=== PATIENT | female | born 1940 | race Caucasian/White ===

== ENCOUNTER 2019-10-11 19:55 | Emergency (ER) | payer MEDICARE, SELFPAY ==
[2019-10-11 19:57] VITALS: BP 159/120; PULSE 95; RESP 18; TEMP 36.4; O2SAT 92; BMI 28.3
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
[2019-10-11] MEDS: HYDROcodone Bitartrate/Apap 5/325 Tablet PO (21:19)
[2019-10-11] MEDS: predniSONE 20 MG Tablet 40 MG PO (21:19)
[2019-10-11 21:23] VITALS: PULSE 83; RESP 16; O2SAT 97
== END 2019-10-11 21:51 | disposition home or self-care (01) ==
PROVIDERS: Emergency Provider Emergency Medicine; PCP Family Medicine
DX: J45.901 Unspecified asthma with (acute) exacerbation (principal); M54.5 Low back pain; G89.29 Other chronic pain; I10 Essential (primary) hypertension
CPT/HCPCS: 99283

== ENCOUNTER → 2019-10-27 | Outpatient (CLI) | payer MEDICARE, SELFPAY ==
[2019-10-11 19:57] VITALS: BMI 28.3
--- NOTE | 2019-10-27 16:04 | RAD_ITS ---
STUDY: X-RAY - THORACIC SPINE REASON FOR EXAM: Female, 79 years old. Back pain TECHNIQUE: 2 view(s) of the thoracic spine were obtained. COMPARISON: None. FINDINGS: Normal kyphosis of the thoracic spine. There is a 9-10 degrees levoscoliosis centered at T7-8. There is multilevel endplate spondylosis of the thoracic vertebrae, with hypertrophic, near bridging right anterolateral endplate osteophytes most prominent at T7-8. Normal disc space heights. Slight left lateral wedging of the T6 vertebra. There is no demonstrated osseous destructive lesion or acute compression fracture deformity The paraspinal soft tissue structures are unremarkable. Atherosclerotic calcifications of the thoracic aorta are incidentally noted. RAD/Thoracic Spine 2 Views IMPRESSION: Degenerative changes of the thoracic spine, as described, most prominent at T7-8. Electronically Signed: Brijesh Renee MD at 16:33 EDT , Service support ,
--- NOTE | 2019-10-27 16:05 | RAD_ITS ---
STUDY: X-RAY - LUMBAR SPINE REASON FOR EXAM: Female, 79 years old. Back pain TECHNIQUE: 3 view(s) of the lumbar spine were obtained. COMPARISON: None FINDINGS: Normal lumbar lordosis. There is no substantial scoliosis. There is mild retrolisthesis of L4 on L5 There is degenerative anterior endplate spondylosis of the L4-5 and L5-S1 vertebrae. Very early anterior spurring noted at the inferior L1 endplate and at L2-3. There is multi-level degenerative disc disease with moderately severe disc space narrowing L4-5 and L5-S1. Gas lucencies within the disc spaces at those levels indicate vacuum phenomenon typical of disc dehydration. There is no demonstrated osseous destructive lesion or acute fracture. There are degenerative arthroses of the mid to lower lumbar facet joints There is atherosclerotic calcification of the abdominal aorta and proximal iliac arteries without a demonstrated aneurysm. RAD/Lumbar Spine 2 or 3 Views IMPRESSION: Degenerative changes of the spine, as detailed above, most prominent at L4-5 and L5-S1. Electronically Signed: Brijesh Renee MD at 16:30 EDT , Service support ,
== END | disposition home or self-care (01) ==
LOC: RAD 16:01
PROVIDERS: PCP Family Medicine; Referring Provider Anesthesiology Pain Medicine; Visit Provider Anesthesiology Pain Medicine
DX: M54.5 Low back pain (principal); M54.6 Pain in thoracic spine
CPT/HCPCS: 72070; 72100

== ENCOUNTER → 2019-11-20 11:59 | Outpatient (CLI) | payer MEDICARE, SELFPAY ==
[2019-11-20 15:52] LABS: ALB/GLOB Ratio 1.1 RATIO (0.9-2.4); AST(SGOT) 13 U/L (15-37); Alanine Aminotransfer ALT/SGPT 22 U/L (13-56); Albumin, Serum 4.2 g/dL (3.2-5.0); Alkaline Phosphatase 102 U/L (45-117); Anion Gap 11 (5-15); BUN 22 mg/dL (7-18); BUN/Creat Ratio 28.1 RATIO (10-20); Calcium,Total 9.9 mg/dL (8.5-10.1); Chloride 102 mmol/L (98-107); Cholesterol 337 mg/dL (200); Creatinine, Serum 0.78 mg/dL (0.55-1.02); EST Glomerular Filtration Rate 75 mL/min (>60); Est Glom Filt Rate - Afr Amer 91 mL/min (>60); Globulin 3.9 g/dL (2.2-4.2); Glucose 113 mg/dL (74-106); High Density Lipoprotein 46 mg/dL; Potassium 4.4 mmol/L (3.5-5.1); Protein, Total 8.1 g/dL (6.4-8.2); Sodium Level 138 mmol/L (136-145); Thyroid Stim Hormone (TSH) 1.33 uIU/mL (0.358-3.74); Triglycerides 221 mg/dL; Very Low Density Lipoprotein 44 mg/dL (5-40)
== END ==
PROVIDERS: Family Medicine; PCP Family Medicine; Referring Provider Family Medicine; Visit Provider Family Medicine
DX: E03.9 Hypothyroidism, unspecified (principal); Z13.220 Encounter for screening for lipoid disorders
CPT/HCPCS: 36415; 80053; 80061; 84443

== ENCOUNTER 2019-12-23 13:00 | Outpatient (RCR) | payer MEDICARE, OTHER, SELFPAY ==
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
--- NOTE | 2020-02-26 08:52 | HP.PTDCSUM ---
It has been my pleasure to treat HUMBERTO ALVARADO referred by Dr. Rosalie Suarez MD, with the diagnosis of Lumbar Spine Pain for a total of 9 visit(s). Discharge Date: Please see the following information for a summary of their discharge status. Subjective: Patient reports that she is doing well- plans to join [facility] Pain Intensity (Out of 10): 6 Objective/Function: Patient was able to complete without incidence. Progressed to weight machines today as pt plans to join [employer] and wanted a program Goal 1:: Patient will be I with HEP and progression Goal 2:: Patient will ambulate >300 feet with a normalized gait pattern Goal 3:: Patient will maintain proper posture t/o to demo increased core s/s Plan: Focus on LE and core s/s with functional mobility If there are questions or concerns regarding this patient's physical therapy, please feel free to call me at [phone]. Thank you for the referral of this patient. Sincerely, AWA PizarroT
== END 2019-12-23 19:00 | disposition home or self-care (01) ==
LOC: PT 13:00
PROVIDERS: PCP Family Medicine; Referring Provider Family Medicine; Visit Provider Anesthesiology Pain Medicine
DX: M54.5 Low back pain (principal); G89.29 Other chronic pain; M25.522 Pain in left elbow; M79.606 Pain in leg, unspecified
CPT/HCPCS: 97110; 97162

== ENCOUNTER 2019-12-31 19:37 | Emergency (ER) | payer MEDICARE, OTHER, SELFPAY ==
[2019-12-31 19:39] VITALS: BP 125/74; PULSE 82; RESP 16; TEMP 36.2; O2SAT 94; BMI 29.2
--- NOTE | 2019-12-31 19:57 | RAD_ITS ---
STUDY: X-RAY CHEST REASON FOR EXAM: Female, 79 years old. Posterior lower right rib pain due to a fall x2 days ago. TECHNIQUE: 2 views COMPARISON: None. FINDINGS: Negative for pneumothorax or pleural effusion. 2 focal eventrations of the right diaphragm. The lung dumont are expanded and clear. Calcified granuloma left upper lung zone. Normal size heart. Normal mediastinum and fermín. Normal visualized pulmonary arteries. There is atherosclerotic calcification of the aortic arch with tortuosity. Demineralized osseous structures. Degenerative disc changes of the thoracic spine. Normal visualized ribs, clavicles, and shoulders. There is no demonstrated abnormality of the visualized soft tissue structures of the upper abdomen. RAD/Chest PA and Lateral IMPRESSION: Negative for pneumothorax, pleural effusion, consolidation or significant atelectasis. Eventrations of the right diaphragm. Normal cardiac size. Atherosclerotic changes of the thoracic aorta. Demineralized osseous structures. Degenerative changes of the spine. Negative for thoracic fracture. Electronically Signed: Amber Dee MD at 20:41 EDT , Service support ,
--- NOTE | 2019-12-31 20:00 | ED.VIS.INJ ---
History of Present Illness Chief Complaint: Fall Detail of Chief Complaint: Right posterior rib pain Informant: Patient Onset: Today, Hours Mechanism/Context: Fall Quality of Pain: Dull, Aching Location: Posterior right eighth through 12th rib Current Severity: Mild Maximum Severity: Moderate Worsened by: Movement and breathing Relieved by: Remain still Associated Symptoms: Negative for: Parasthesias, Weakness, Loss of function, Inability to ambulate, Loss of consciousness, Amnesia Narrative: Patient states she lost her balance on a rug. She fell onto the floor. She struck the right side of her chest/back. She presents because of pain with movement and breathing. She does report mild shortness of breath which she attributes to her pulmonary disease. She denies anterior chest pain. She has urinated and states her urine appeared normal in color. She does have history of fractured back and sees Dr. Mcrae for chronic pain management. She denies head trauma. She is not on anticoagulant. She denies neck pain. Denies paresthesia, anesthesia motor is present at time of injury. Tetanus Immunization: 5-10 years Prior similar symptoms: No Recent Illness/Hospitalization: No - Past Medical History (1) History of COPD Status: Chronic (2) History of chronic back pain Status: Chronic Past Medical History - Allergies and Home Meds Allergies/Adverse Reactions: Allergies latex Allergy (Verified 12/31/19 19:41) Rash Sulfa (Sulfonamide Antibiotics) Allergy (Verified 12/31/19 19:41) Itching Primary Care Physician: Delvin Robertson MD [Primary Care Provider] - Prior records reviewed: Yes Surgical History: noncontributory Lives: Alone Smoking Status: Former smoker Alcohol: None Drugs: None Review of Systems General: Denies: Malaise Eyes: Denies: Visual changes - bilaterally ENT: Reports: - - Decreased hearing, ringing or ears or drainage. Denies epistaxis. Denies difficulty opening closing her mouth or dental pain. Cardiovascular: Denies: Chest pain, Palpitations Respiratory: Denies: Dyspnea, Cough, Dyspnea on exertion Gastrointestinal: Denies: Abdominal pain, Nausea, Vomiting, Diarrhea, Melena, Hematochezia Genitourinary: Denies: Dysuria, Hematuria, Frequency Musculoskeletal: Reports: Back pain. Denies: Myalgias, Arthralgias, Neck pain, Swelling, Extremity Pain Skin: Reports: Wounds - This right mid back due to trauma. Denies: Rash Neurological: Denies: Headache, Weakness, Numbness Hematologic: Denies: Easy bruising, Easy bleeding Physical Exam Vital Signs/Narrative: Vital Signs Temp Pulse Resp BP Pulse Ox 12/31/19 19:39 97.2 F L 82 16 125/74 H 94 Inital Vital Signs reviewed: Yes General: Well nourished, Well developed Head: Normocephalic, Atraumatic. Negative for: Trauma, Tenderness Eyes: Perrl, EOMI, - - No subconjunctival hemorrhage noted.. Negative for: Pale conjunctiva, Scleral icterus ENT: TM's clear, No hemotympanum or drainage, No trauma. Negative for: Hemotympanum, Nasal trauma, Nasal septal hematoma Neck: Nontender, Full ROM. Negative for: Spinal Tenderness, Paraspinal Tenderness Cardiovascular: Regular rate, Regular rhythm, No murmurs, Normal S1, Normal S2 Respiratory: No distress, CTA bilaterally, Chest tenderness Abdomen: Soft, Nontender, Nondistended, Normal bowel sounds, No masses Back: CVA Tenderness - Right, Paraspinal Tenderness. Negative for: Nontender, Spinal Tenderness Skin: Normal color, No rash, Trauma. Negative for: Cyanosis, Diaphoresis, Jaundice Neurological: Alert, Oriented x3, Cranial nerves II-XII grossly intact, Normal Strength, Normal Sensation Psychological: Normal affect - Glascow Coma Scale Eye Opening: Spontaneous Motor: Obeys Commands Verbal: Oriented Coma Scale Total: 15 Diagnostic/Tx/Re-eval Chest X-Ray - ED: Read by ED Physician, Read by Radiologist Impressions Chest X-Ray 12/31/19 19:57 IMPRESSION: Negative for pneumothorax, pleural effusion, consolidation or significant atelectasis. Eventrations of the right diaphragm. Normal cardiac size. Atherosclerotic changes of the thoracic aorta. Demineralized osseous structures. Degenerative changes of the spine. Negative for thoracic fracture. Electronically Signed: Amber Dee MD at 20:41 EDT , Service support , 12/31/19 19:57 Chest PA and Lateral [RAD] Stat X-ray interpreted radiologist reviewed by me. Agree there is no acute pathology noted. We will treat for rib contusion. - Medical Decision Making She has point tenderness over the lower right ribs posteriorly x-ray was obtained to assess for hemothorax and pneumothorax. Patient was medicated with [place]. ED Disposition - Plan for ED Patient: Disposition: Home or Assisted Living Diagnosis: Contusion of ribs Instructions: ED CONTUSION Rib Prescriptions: Hydrocodone Bitart/Apap 5-325 [[place] 5MG-325MG] 1 tablet PO Q6H PRN PRN 3 Days #10 tablet PRN Reason: Pain Transmission Status: Received by [id number] Referrals: Delvin Robertson MD [Primary Care Provider] - As Needed
[2019-12-31] MEDS: HYDROcodone Bitartrate/Apap 5/325 Tablet PO (20:24)
[2019-12-31 20:59] VITALS: RESP 18
== END 2019-12-31 21:06 | disposition home or self-care (01) ==
PROVIDERS: Emergency Provider Emergency Medicine; PCP Family Medicine
DX: S20.219A Contusion of unspecified front wall of thorax, initial encounter (principal); J44.9 Chronic obstructive pulmonary disease, unspecified; G89.29 Other chronic pain; M54.9 Dorsalgia, unspecified; Z79.1 Long term (current) use of non-steroidal anti-inflammatories (NSAID); Z87.891 Personal history of nicotine dependence; W18.30XA Fall on same level, unspecified, initial encounter; Y93.89 Activity, other specified; Y92.89 Other specified places as the place of occurrence of the external cause; Y99.8 Other external cause status
CPT/HCPCS: 71046; 99282

== ENCOUNTER → 2020-02-20 | Outpatient (CLI) | payer MEDICARE, OTHER, SELFPAY ==
[2020-02-20 15:37] LABS: AST(SGOT) 24 U/L (15-37); Alanine Aminotransfer ALT/SGPT 27 U/L (13-56); Alkaline Phosphatase 107 U/L (45-117); Anion Gap 7 (5-15); BUN 11 mg/dL (7-18); BUN/Creat Ratio 11.8 RATIO (10-20); Calcium,Total 9.9 mg/dL (8.5-10.1); Chloride 102 mmol/L (98-107); Cholesterol 190 mg/dL (200); Creatinine, Serum 0.93 mg/dL (0.55-1.02); EST Glomerular Filtration Rate 62 mL/min (>60); Est Glom Filt Rate - Afr Amer 75 mL/min (>60); Glucose 108 mg/dL (74-106); High Density Lipoprotein 54 mg/dL; Potassium 4.1 mmol/L (3.5-5.1); Sodium Level 138 mmol/L (136-145); Triglycerides 160 mg/dL; Very Low Density Lipoprotein 32 mg/dL (5-40)
== END | disposition home or self-care (01) ==
LOC: MFPLAB 11:58
PROVIDERS: Family Medicine; PCP Family Medicine; Referring Provider Family Medicine; Visit Provider Family Medicine
DX: E78.5 Hyperlipidemia, unspecified (principal)
CPT/HCPCS: 36415; 80053; 80061

== ENCOUNTER → 2020-04-26 | Outpatient (CLI) | payer MEDICARE, OTHER, SELFPAY ==
[2020-04-29 10:43] LABS: HPV Reflexed? NOT INDICATED
== END | disposition home or self-care (01) ==
PROVIDERS: PCP Family Medicine; Referring Provider Nurse Practitioner Adult Health; Visit Provider Nurse Practitioner Adult Health
DX: Z85.44 Personal history of malignant neoplasm of other female genital organs (principal); Z12.4 Encounter for screening for malignant neoplasm of cervix
CPT/HCPCS: 88175; G0145

== ENCOUNTER → 2020-05-05 15:22 | Outpatient (CLI) | payer MEDICARE, OTHER, SELFPAY ==
[2020-05-05 16:49] LABS: Amphetamine Urine VISTA NEGATIVE (<1000 ng/mL); Barbiturate Urine VISTA NEGATIVE (< 200 ng/mL); Benzodiazepine Urine VISTA NEGATIVE (< 200 ng/mL); Cocaine Urine VISTA NEGATIVE (< 300 ng/mL); Ecstacy Urine VISTA POSITIVE (< 500 ng/mL); Methadone Urine VISTA NEGATIVE (< 300 ng/mL); PCP Urine VISTA NEGATIVE (< 25 ng/mL); THC Urine VISTA NEGATIVE (< 50 ng/mL); Vista UDS pH Range 5
== END ==
PROVIDERS: PCP Family Medicine; Referring Provider Anesthesiology Pain Medicine; Visit Provider Anesthesiology Pain Medicine
DX: F11.20 Opioid dependence, uncomplicated (principal)
CPT/HCPCS: 80307

== ENCOUNTER → 2020-07-05 17:15 | Outpatient (CLI) | payer MEDICARE, OTHER, SELFPAY ==
--- NOTE | 2020-07-05 17:30 | US_ITS ---
STUDY: RENAL ULTRASOUND - COMPLETE REASON FOR EXAM: Female, 80 years old. UTI,S TECHNIQUE: Ultrasound evaluation of the kidneys was performed with real-time and static bull-scale imaging. COMPARISON: None. FINDINGS: RIGHT KIDNEY: Normal location of the right kidney, which is normal in size. The right kidney measures 9.6 x 3.6 x 4.9 cm. There is a normal cortex of the right kidney. The renal cortex measures 1.1 cm. There is no right renal mass or cyst. There are no right renal calculi. There is no right hydronephrosis. DISTAL RIGHT URETER: There is non-visualization of the distal right ureter. There is no demonstrated right ureterovesical junction calculus. There is no demonstrated right ureteral jet. LEFT KIDNEY: Normal location of the left kidney, which is normal in size. The left kidney measures 9.6 x 4.1 x 4.0 cm. There is a normal cortex of the left kidney. The renal cortex measures 1.1 cm. Small hypoechoic structure within the left kidney measuring 1.1 x 1.8 x 1.4 cm consistent with a cyst. There are no left renal calculi. There is no left hydronephrosis. DISTAL LEFT URETER: There is non-visualization of the distal left ureter. There is no demonstrated left ureterovesical junction calculus. There is no demonstrated left ureteral jet. BLADDER: The urinary bladder has a volume of 68.4 ml There is a normal wall thickness of the distended urinary bladder. There is no demonstrated mass within the urinary bladder. There are no demonstrated bladder calculi. US/Kidney and Bladder IMPRESSION: Small cyst within the left kidney as described otherwise unremarkable ultrasound of the bilateral kidneys. Specifically, no hydronephrosis or intrarenal stone. Electronically Signed: Tri Prince MD at 0:57 EST , Service support ,
== END ==
PROVIDERS: PCP Family Medicine; Visit Provider Urology
DX: N39.0 Urinary tract infection, site not specified (principal)
CPT/HCPCS: 76770

== ENCOUNTER → 2020-10-14 15:02 | Outpatient (CLI) | payer MEDICARE, OTHER, SELFPAY ==
[2020-10-14 18:28] LABS: AST(SGOT) 29 U/L (15-37); Alanine Aminotransfer ALT/SGPT 39 U/L (13-56); Albumin, Serum 3.6 g/dL (3.2-5.0); Alkaline Phosphatase 165 U/L (45-117); Anion Gap 8 (5-15); BUN 23 mg/dL (7-18); BUN/Creat Ratio 22.1 RATIO (10-20); Calcium,Total 9.2 mg/dL (8.5-10.1); Chloride 102 mmol/L (98-107); Cholesterol 190 mg/dL (200); Creatinine, Serum 1.04 mg/dL (0.55-1.02); EST Glomerular Filtration Rate 54 mL/min (>60); Est Glom Filt Rate - Afr Amer 66 mL/min (>60); Globulin 3.7 g/dL (2.2-4.2); Glucose 152 mg/dL (74-106); High Density Lipoprotein 51 mg/dL; Potassium 4.1 mmol/L (3.5-5.1); Protein, Total 7.3 g/dL (6.4-8.2); Sodium Level 137 mmol/L (136-145); Thyroid Stim Hormone (TSH) 0.93 uIU/mL (0.358-3.74); Triglycerides 173 mg/dL; Very Low Density Lipoprotein 35 mg/dL (5-40)
[2020-10-14 19:40] LABS: Hemoglobin A1c 6.4 % (3.8-5.6)
== END ==
PROVIDERS: Family Medicine; PCP Family Medicine; Referring Provider Family Medicine; Visit Provider Family Medicine
DX: E03.9 Hypothyroidism, unspecified (principal); R73.03 Prediabetes; E78.5 Hyperlipidemia, unspecified
CPT/HCPCS: 36415; 80053; 80061; 83036; 84443

== ENCOUNTER → 2020-10-20 12:25 | Outpatient (CLI) | payer MEDICARE, OTHER, SELFPAY ==
--- NOTE | 2020-10-20 12:26 | US_ITS ---
STUDY: THYROID ULTRASOUND REASON FOR EXAM: Female, 80 years old. Thyroid nodules. TECHNIQUE: Ultrasound evaluation of the thyroid was performed with real-time and static donald-scale imaging. COMPARISON: None. FINDINGS: RIGHT LOBE: The right lobe of the thyroid was not seen. LEFT LOBE: Left lobe of the thyroid gland is not seen. The regional lymph nodes are normal. US/Thyroid IMPRESSION: No thyroid gland is seen. 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 Electronically Signed: Ryne Isabel MD at 10:47 EDT , Service support ,
== END ==
PROVIDERS: PCP Family Medicine; Referring Provider Family Medicine; Visit Provider Family Medicine
DX: E04.1 Nontoxic single thyroid nodule (principal)
CPT/HCPCS: 76536

== ENCOUNTER → 2021-05-10 16:33 | Outpatient (CLI) | payer MEDICARE, OTHER, SELFPAY ==
[2021-05-10 17:50] LABS: Absolute Lymphocyte Count 3.99 X10^3/uL (0.83-4.51); Absolute Neutrophil Count 5.9 X10^3/uL (2.0-7.7); Basophil# 0.16 X10^3/uL; Basophil% 1.4 % (0-1); Eosinophil# 0.64 X10^3/uL; Eosinophils% 5.6 % (0-5); Hematocrit 37.1 % (37-47); Hemoglobin 11.7 g/dL (12.0-15.0); Lymphocyte # 3.99 X10^3/ul (0.83-4.51); Lymphocyte % 34.7 % (19-41); Mean Corp Hgb Conc 31.5 g/dL (32-36); Mean Corpuscular Hgb 28.9 pg (27.0-32.0); Mean Corpuscular Volume 91.6 fL (81-99); Mean Platelet Vol. 9.7 fl (6.2-12.0); Monocyte# 0.78 X10^3/uL; Monocyte% 6.8 % (0-10); NRBC Flagged by Analyzer 0 % (0-5); Neutrophil # 5.89 X10^3/uL (2.7-7.7); Neutrophil % 51.1 % (47-70); Platelet Count 520 K/mm3 (150-450); RBC Distribution Width CV 14.1 % (11.6-14.6); RBC Distribution Width SD 47.6 fl (35.1-43.9); Red Blood Count 4.05 M/mm3 (4.2-5.4); White Blood Count 11.5 K/mm3 (4.4-11.0)
[2021-05-10 18:06] LABS: ALB/GLOB Ratio 0.9 RATIO (0.9-2.4); AST(SGOT) 18 U/L (15-37); Alanine Aminotransfer ALT/SGPT 23 U/L (13-56); Albumin, Serum 3.6 g/dL (3.2-5.0); Alkaline Phosphatase 113 U/L (45-117); Anion Gap 7 (5-15); BUN 15 mg/dL (7-18); BUN/Creat Ratio 17.2 RATIO (10-20); Calcium,Total 9.1 mg/dL (8.5-10.1); Chloride 109 mmol/L (98-107); Cholesterol 167 mg/dL (200); Creatinine, Serum 0.87 mg/dL (0.55-1.02); EST Glomerular Filtration Rate 66 mL/min (>60); Est Glom Filt Rate - Afr Amer 80 mL/min (>60); Globulin 4.1 g/dL (2.2-4.2); Glucose 98 mg/dL (74-106); High Density Lipoprotein 55 mg/dL; Potassium 4.3 mmol/L (3.5-5.1); Protein, Total 7.7 g/dL (6.4-8.2); Sodium Level 139 mmol/L (136-145); Thyroid Stim Hormone (TSH) 0.93 uIU/mL (0.358-3.74); Triglycerides 157 mg/dL; Very Low Density Lipoprotein 31 mg/dL (5-40)
== END ==
PROVIDERS: PCP Family Medicine; Referring Provider Family Medicine; Visit Provider Registered Nurse
DX: E78.5 Hyperlipidemia, unspecified (principal); E03.9 Hypothyroidism, unspecified; R73.03 Prediabetes
CPT/HCPCS: 36415; 80053; 80061; 83036; 84443; 85025

== ENCOUNTER 2021-07-18 15:16 | Outpatient (CLI) | payer MEDICARE, OTHER, SELFPAY ==
--- NOTE | 2021-07-18 15:50 | VDLE_ITS ---
Reason For Study: swelling Procedure LEFT This is a venous duplex using B-mode, color GSV is normal. flow and spectral Doppler. CFV is compressible, spontaneous, phasic, Exam performed in department. competent, and demonstrates normal The exam was diagnostic. augmentation. A preliminary report was called and/or faxed FV is compressible, spontaneous, phasic, to Dr. Gupta @ [phone] @ 4:20 pm. competent and demonstrates normal augmentation. POP V is compressible, spontaneous, phasic, competent and demonstrates normal augmentation. T/P Trunk is compressible. PTV is compressible. LT PerV is compressible. VL/Venous Duplex US, Unilateral Interpretation Summary Deep veins of the left lower extremity are patent and compressible segmentally. There is no evidence of left lower extremity deep vein thrombosis. Valvular competence appears intac t within the proximal deep venous system on the left . The left great saphenous vein appears patent a nd compressible segmentally. Ordering Physician: Verenice Gupta Referring Physician: Verenice Gupta Performed By: Rina Kee, JANINE, RVT
== END 2021-07-18 23:59 | disposition home or self-care (01) ==
LOC: CVS 15:22
PROVIDERS: PCP Family Medicine; Referring Provider Family Medicine; Visit Provider Family Medicine
DX: M79.89 Other specified soft tissue disorders (principal)
CPT/HCPCS: 93971

== ENCOUNTER 2021-07-28 14:24 | Outpatient (CLI) | payer MEDICARE, OTHER, SELFPAY ==
[2021-07-28 17:54] LABS: Anion Gap 4 (5-15); BUN 16 mg/dL (7-18); BUN/Creat Ratio 15.2 RATIO (10-20); Calcium,Total 9.2 mg/dL (8.5-10.1); Chloride 102 mmol/L (98-107); Creatinine, Serum 1.05 mg/dL (0.55-1.02); EST Glomerular Filtration Rate 53 mL/min (>60); Est Glom Filt Rate - Afr Amer 65 mL/min (>60); Glucose 104 mg/dL (74-106); Potassium 4.1 mmol/L (3.5-5.1); Sodium Level 141 mmol/L (136-145)
[2021-07-28 18:02] LABS: BNP,B-Type NATRIURETIC PEPTIDE 168.4 pg/mL (0-100)
== END 2021-07-28 23:59 | disposition home or self-care (01) ==
LOC: MFPLAB 14:29
PROVIDERS: PCP Family Medicine; Referring Provider Family Medicine; Visit Provider Nurse Practitioner Family
DX: R06.02 Shortness of breath (principal); M79.89 Other specified soft tissue disorders
CPT/HCPCS: 36415; 80048; 83880

== ENCOUNTER 2021-08-18 12:52 | Outpatient (CLI) | payer MEDICARE, OTHER, SELFPAY ==
--- NOTE | 2021-08-18 12:58 | ECHOD_ITS ---
Reason For Study: SOB Procedure This was a 2D Doppler, Color Flow transthoracic echocardiogram. Exam performed in department. Left Ventricle Normal LV size. Left ventricular systolic function is normal. The estimated ejection fraction is 55 %. Stage 1 diastolic dysfunction. No regional wall motion abnormalities noted. Right Ventricle Normal RV size. Normal systolic function. Atria Normal left atrium. Normal right atrium. Mitral Valve There is mild to moderate mitral annular calcification. Mild (1+) eccentric mitral valve insufficiency. Tricuspid Valve Normal tricuspid valve. Mild (1+) tricuspid valve insufficiency. Pulmonary artery systolic pressure is 34 mmHg. Aortic Valve Trisinus/trileaflet aortic valve. Pulmonic Valve Normal pulmonic valve. Mild (1+) pulmonic valve insufficiency. Great Vessels Normal aortic root. The pulmonary artery is normal size. Normal inferior vena cava. Pericardium/Pleural No pericardial effusion. MMode/2D Measurements & Calculations LVIDd: 4.3 cm IVSd: 0.82 cm Ao root diam: 2.8 cm LVIDs: 2.8 cm LVPWd: 0.80 cm RVDd: 2.9 cm FS: 34.7 % LAV(MOD-bp): 34.4 ml LVAd ap4: 22.4 cm2 SV(MOD-sp4): 34.9 ml LAV(MOD-bp) Indexed: 20.6 ml/m2 LVLd ap4: 7.2 cm LAV(MOD-sp2): 35.5 ml EDV(MOD-sp4): 56.7 ml LAV(MOD-sp4): 29.1 ml EDV(sp4-el): 58.9 ml LVAs ap4: 12.8 cm2 LVLs ap4: 6.4 cm ESV(MOD-sp4): 21.8 ml ESV(sp4-el): 21.6 ml EF(MOD-sp4): 61.6 % EF(sp4-el): 63.4 % SV(sp4-el): 37.4 ml LA A4 area: 12.5 cm2 LA dimension(2D): 3.7 cm RA A4 area: 12.5 cm2 Time Measurements MV dec time: 0.26 sec Doppler Measurements & Calculations MV E max dio: 94.5 cm/sec Lat Peak E' Dio: 4.5 cm/sec Med Peak E' Dio: 5.5 cm/sec MV A max dio: 152.7 cm/sec E/E' lat: 21.2 E/E' med: 17.2 MV E/A: 0.62 Ao V2 max: 170.9 cm/sec LV V1 max: 101.8 cm/sec PA V2 max: 102.8 cm/sec Ao max P.7 mmHg LV V1 max P.1 mmHg TR max dio: 263.9 cm/sec TR max P.9 mmHg ECHO/Echo Complete Interpretation Summary Normal LV size. Left ventricular systolic function is normal. The estimated ejection fraction is 55 %. There is mild to moderate mitral annular calcification. Mild (1+) eccentric mitral valve insufficiency. Stage 1 diastolic dysfunction. Pulmonary artery systolic pressure is 34 mmHg. Ordering Physician: Inocencia Ching Referring Physician: YUSUF SAUCEDO Performed By: Rakel Kaminski RDCS
== END 2021-08-18 23:59 | disposition home or self-care (01) ==
PROVIDERS: PCP Family Medicine; Referring Provider Nurse Practitioner Family; Visit Provider Nurse Practitioner Family
DX: R06.02 Shortness of breath (principal)
CPT/HCPCS: 93306

== ENCOUNTER 2021-10-13 15:28 | Emergency (ER) | payer MEDICARE, OTHER, SELFPAY ==
[2021-10-13 15:29] VITALS: BP 147/89; PULSE 76; RESP 15; TEMP 36.7; O2SAT 96; BMI 30.2
[2021-10-13 15:31] VITALS: BP 147/89; PULSE 76; RESP 15; TEMP 36.7; O2SAT 96
[2021-10-13 16:42] LABS: Bacteria 0 SEEN /hpf (None Seen); Mucous, Urine 0 SEEN /hpf (<or=2+); Squamous Epithelial Cells - UA 0 SEEN /hpf (5-10); White Blood Cells 0 SEEN /hpf (0-5)
[2021-10-13 16:48] LABS: Color, Urine Straw (Yellow); Glucose, Dipstick Normal (Normal); Ketone-Dipstick Negative (Negative); Leukocyte Esterase-Dipstick Negative /ul (Negative); Nitrite-Dipstick Negative (Negative); Occult Blood-Urine Negative /ul (Negative); Protein-Dipstick Negative (Negative); Specific Gravity, Urine 1.005 (1.002-1.030); Urine Bilirubin Dipstick Negative (Negative); Urine Clarity Clear (Clear); Urine Urobilinogen Normal (Normal)
--- NOTE | 2021-10-13 16:52 | EDS_ITS ---
HPI <SAVANNAH Mariscal - Last Filed: 10/13/21 17:23> HPI - Female History of Present Illness Chief Complaint: Complaint Narrative Narrative: 81-year-old female presents with a few day history of frequency and decreased urination. She feels the urge to go but only a little bit comes out. She denies burning or hematuria. She has abdominal fullness and pressure. No flank pain, fever, chills, nausea, vomiting. She states she had issues with urinary retention before when she lived in [place] and intermittently self cathed but has not had to do this in a long time. PFSH <SAVANNAH Mariscal Last Filed: 10/13/21 17:23> PFSH Home Medications gabapentin 300 mg PO TID 12/31/19 [History Last Taken Unknown] levothyroxine 100 mcg PO DAILY 12/31/19 [History Last Taken Unknown] meloxicam 7.5 mg PO Q6H PRN PRN 12/31/19 [History Last Taken Unknown] Allergy/AdvReac Type Severity Reaction Status Date / Time latex Allergy Rash Verified 12/31/19 19:41 Sulfa (Sulfonamide Allergy Itching Verified 12/31/19 19:41 Antibiotics) Social History Smoking Status: Former smoker ROS <SAVANNAH Mariscal Last Filed: 10/13/21 17:23> ROS ED ROS Narrative Constitutional: Negative for fever, chills, malaise. Eyes: Negative for visual change. ENT: Negative for sore throat, rhinorrhea. CVS: Negative for palpitations, chest pain, syncope. Respiratory: Negative for shortness of breath, cough. GI: Negative for abdominal pain, nausea, vomiting, diarrhea, constipation, melena, hematochezia. : Positive for frequency, retention. Negative for hematuria. Neuro: Negative for headache, motor/sensory dysfunction. Skin: Negative for rash, abscess, or wound. Musc: Negative for joint pain, swelling, trauma. Heme: Negative for easy bruising, bleeding, lymphadenopathy. EXAM <SAVANNAH Mariscal Last Filed: 10/13/21 17:23> Physical Exam Narrative Exam Narrative: CONST: Patient sitting in no acute distress. EYES: Normal inspection. NECK: Normal inspection. RESP: No respiratory distress, CTAB. CVS: Regular rate and rhythm, no murmur, no gallop. ABD: Soft with suprapubic tenderness and fullness, no guarding or rebound. Back: Normal inspection, no CVA tenderness. SKIN: Color normal, no rash, warm, dry, intact. EXTREMITIES: Normal appearance, no pedal edema. NEURO: Oriented x4. PSYCH: Normal affect. Const Vital Signs: 10/13/21 15:29 10/13/21 15:31 10/13/21 17:36 Temperature 98.1 F 98.1 F Temperature Source Temporal Temporal Pulse Rate 76 76 81 Respiratory Rate 15 15 14 Blood Pressure 147/89 H 147/89 H 149/71 H Blood Pressure Mean 108 108 Pulse Ox 96 96 97 Oxygen Delivery Method Room Air Room Air <Dr. Eddi Augustin DO - Last Filed: 10/13/21 17:38> Physical Exam Const Vital Signs: 10/13/21 15:29 10/13/21 15:31 10/13/21 17:36 Temperature 98.1 F 98.1 F Temperature Source Temporal Temporal Pulse Rate 76 76 81 Respiratory Rate 15 15 14 Blood Pressure 147/89 H 147/89 H 149/71 H Blood Pressure Mean 108 108 Pulse Ox 96 96 97 Oxygen Delivery Method Room Air Room Air [facility] <SAVANNAH Mariscal - Last Filed: 10/13/21 17:23> [facility] Narrative Medical decision making narrative: Patient presents with urinary frequency and retention. She appears well and nontoxic. Afebrile vital signs within normal limits. She has suprapubic fullness and tenderness but no guarding or rebound. No CVA tenderness is present. Bladder scan showed around 9400 cc present. Hylton was placed and urinalysis shows no infection. BMP unremarkable with normal renal function. Hylton will be left in and she was given a leg bag and educated on Hylton catheter care. She was referred to urology for further evaluation of urinary retention and discharged in stable condition. Diagnosis 1. Urinary retention Lab Data Labs: Laboratory Results - last 24 hr 10/13/21 10/13/21 16:40 16:40 Sodium 138 Potassium 4.3 Chloride 107 Carbon Dioxide 26.0 Anion Gap 5 BUN 18 Creatinine 0.80 Estim Creat Clear Calc 41.62 Est GFR (MDRD) Af Amer 88 Est GFR (MDRD) Non-Af 73 BUN/Creatinine Ratio 22.5 H Glucose 112 H Calcium 9.6 Urine Color Straw Urine Clarity Clear Urine pH 7.0 Ur Specific [place] 1.005 Urine Protein Negative Urine Glucose (UA) Normal Urine Ketones Negative Urine Occult Blood Negative Urine Nitrite Negative Urine Bilirubin Negative Urine Urobilinogen Normal Ur Leukocyte Esterase Negative Urine RBC 0-5 SEEN Urine WBC 0 SEEN Ur Squamous Epith Cells 0 SEEN Urine Bacteria 0 SEEN Urine Mucus 0 SEEN <Dr. Eddi Augustin DO - Last Filed: 10/13/21 17:38> [facility] MDM Narrative Medical decision making narrative: I performed a history and physical examination of the patient and discussed management plan with the physician travel assistant. I reviewed the physician travel assistant's note and agree with the documented findings and plan of care. Patient with a recurrent urinary retention. Hylton catheter placed. Follow-up with urology. Eddi Augustin DO, MS Lab Data Labs: Laboratory Results - last 24 hr 10/13/21 10/13/21 16:40 16:40 Sodium 138 Potassium 4.3 Chloride 107 Carbon Dioxide 26.0 Anion Gap 5 BUN 18 Creatinine 0.80 Estim Creat Clear Calc 41.62 Est GFR (MDRD) Af Amer 88 Est GFR (MDRD) Non-Af 73 BUN/Creatinine Ratio 22.5 H Glucose 112 H Calcium 9.6 Urine Color Straw Urine Clarity Clear Urine pH 7.0 Ur Specific [place] 1.005 Urine Protein Negative Urine Glucose (UA) Normal Urine Ketones Negative Urine Occult Blood Negative Urine Nitrite Negative Urine Bilirubin Negative Urine Urobilinogen Normal Ur Leukocyte Esterase Negative Urine RBC 0-5 SEEN Urine WBC 0 SEEN Ur Squamous Epith Cells 0 SEEN Urine Bacteria 0 SEEN Urine Mucus 0 SEEN Discharge Plan Triage Chief Complaint: Complaint ED Provider: Nia Martin Dx/Rx/DC Orders Clinical Impression: Acute urinary retention Instructions: ED Hylton Catheter, Care, ED Urinary Retention, Female Prescriptions: No Action meloxicam 7.5 MG tablet 7.5 mg PO Q6H PRN PRN (Reason: Pain Or Fever) RF: 0 levothyroxine 100 MCG tablet 100 mcg PO DAILY RF: 0 gabapentin 300 MG capsule 300 mg PO TID RF: 0 Primary Care Provider: Delvin Robertson Referrals: Richar De Paz MD [STAFF PHYSICIAN] - (Call for an appointment) Delvin Robertson MD [Primary Care Provider] - Disposition Disposition: Home, Self Care
[2021-10-13 17:01] LABS: Anion Gap 5 (5-15); BUN 18 mg/dL (7-18); BUN/Creat Ratio 22.5 RATIO (10-20); Calcium,Total 9.6 mg/dL (8.5-10.1); Chloride 107 mmol/L (98-107); EST Glomerular Filtration Rate 73 mL/min (>60); Est Glom Filt Rate - Afr Amer 88 mL/min (>60); Estimated Creatinine Clearance 41.62 ml/min; Glucose 112 mg/dL (74-106); Potassium 4.3 mmol/L (3.5-5.1); Sodium Level 138 mmol/L (136-145)
[2021-10-13 17:04] LABS: Red Blood Cells-Urine 0-5 SEEN /hpf (0-5)
[2021-10-13 17:36] VITALS: BP 149/71; PULSE 81; RESP 14; O2SAT 97
== END 2021-10-13 17:42 | disposition home or self-care (01) ==
PROVIDERS: Emergency Provider Physician Assistant; PCP Family Medicine; Visit Provider Physician Assistant
DX: R33.9 Retention of urine, unspecified (principal); Z87.891 Personal history of nicotine dependence; R35.0 Frequency of micturition
CPT/HCPCS: 51702; 80048; 81001; 87086; 99283